=== PATIENT | male | born 1955 | race Caucasian/White ===

== ENCOUNTER → 2022-03-01 11:25 | Outpatient (BNVA) | payer MEDICARE, MEDICAID, SELFPAY | PROVIDERS: Visit Provider Family Medicine | DX: I10 Essential (primary) hypertension (principal); M25.50 Pain in unspecified joint; Z12.5 Encounter for screening for malignant neoplasm of prostate; Z23 Encounter for immunization | CPT/HCPCS: 80053; 80061; 84443; 84550; 85025; 85651; 86038; 86431; G0103 ==

== ENCOUNTER 2022-03-08 01:00 | Outpatient (CLI) | payer MEDICARE, MEDICAID, SELFPAY | END 2022-03-08 21:10 | disposition home or self-care (01) | LOC: RAD 03-28 21:10 | PROVIDERS: PCP Family Medicine; Visit Provider Family Medicine | DX: I10 Essential (primary) hypertension (principal); R73.09 Other abnormal glucose; R79.89 Other specified abnormal findings of blood chemistry | CPT/HCPCS: 80048; 82746; 83036; 85025 ==

== ENCOUNTER → 2023-01-19 11:41 | Outpatient (BNVA) | payer MEDICARE, MEDICAID, SELFPAY | PROVIDERS: PCP Family Medicine; Visit Provider Family Medicine | DX: N52.9 Male erectile dysfunction, unspecified (principal); I10 Essential (primary) hypertension | CPT/HCPCS: 80053; 80061; 84443; 85025 ==

== ENCOUNTER → 2023-10-17 13:37 | Outpatient (BNVA) | payer MEDICARE, MEDICAID, SELFPAY | PROVIDERS: PCP Family Medicine; Visit Provider Family Medicine | DX: I10 Essential (primary) hypertension (principal); Z12.5 Encounter for screening for malignant neoplasm of prostate; B07.0 Plantar wart; R19.7 Diarrhea, unspecified | CPT/HCPCS: 80053; 80061; 84443; 85025; G0103 ==

== ENCOUNTER → 2023-10-25 09:29 | Outpatient (BNVA) | payer MEDICARE, MEDICAID, SELFPAY | PROVIDERS: PCP Family Medicine; Visit Provider Podiatrist Foot & Ankle Surgery | DX: I73.9 Peripheral vascular disease, unspecified (principal); B35.1 Tinea unguium; Q82.8 Other specified congenital malformations of skin | CPT/HCPCS: 11056; 11721; 99203 ==

== ENCOUNTER 2023-12-17 10:58 | Outpatient (CLI) | payer MEDICARE, MEDICAID, SELFPAY | END 2023-12-17 10:59 | disposition home or self-care (01) | LOC: LAB 11:02 | PROVIDERS: PCP Family Medicine; Visit Provider Nurse Practitioner Family | DX: N39.0 Urinary tract infection, site not specified (principal) | CPT/HCPCS: 87086 ==

== ENCOUNTER → 2023-12-27 09:25 | Outpatient (BNVA) | payer MEDICARE, MEDICAID, SELFPAY | PROVIDERS: PCP Family Medicine; Visit Provider Family Medicine | DX: R97.20 Elevated prostate specific antigen [PSA] (principal) | CPT/HCPCS: 84153 ==

== ENCOUNTER → 2024-03-03 12:40 | Outpatient (BNVA) | payer MEDICARE, MEDICAID, SELFPAY | PROVIDERS: PCP Nurse Practitioner Family; Visit Provider Nurse Practitioner Family | DX: L02.32 Furuncle of buttock (principal) | CPT/HCPCS: 87070 ==

== ENCOUNTER → 2024-08-19 11:20 | Outpatient (BNVA) | payer MEDICARE, MEDICAID, SELFPAY | PROVIDERS: PCP Nurse Practitioner Family; Visit Provider Nurse Practitioner Family | DX: I10 Essential (primary) hypertension (principal); R19.7 Diarrhea, unspecified; R97.20 Elevated prostate specific antigen [PSA] | CPT/HCPCS: 80053; 80061; 84153; 84443; 85025 ==

== ENCOUNTER → 2024-09-08 12:40 | Outpatient (BNVA) | payer MEDICARE, MEDICAID, SELFPAY | PROVIDERS: PCP Nurse Practitioner Family; Visit Provider Nurse Practitioner Family | DX: R71.8 Other abnormality of red blood cells (principal) | CPT/HCPCS: 82607; 82746 ==